=== PATIENT | male | born 1985 | race African-American/Black ===

== ENCOUNTER 2022-01-04 22:14 | Emergency (ER) | payer OTHER ==
[~2022-01-04] VITALS: Ht 175.3 cm; Wt 89.8 kg
[2022-01-04] MEDS ORDERED: PEPCID AC20 MG (22:20)
[2022-01-05] MEDS ORDERED: PROTONIX20 MG PO (02:36)
[2022-01-05] MEDS ORDERED: PEPCID AC20 MG PO (02:36)
[2022-01-05] MEDS ORDERED: CARAFATE1 GM PO (02:36)
== END 2022-01-05 03:40 | disposition home or self-care (01) ==
LOC: ER 22:14
DX: K29.70 Gastritis, unspecified, without bleeding (principal)